=== PATIENT | male | born 1935 | race Two or more races ===

== ENCOUNTER 2020-07-01 09:15 | Emergency (ER) | payer MEDICARE, OTHER ==
[~2020-07-01] VITALS: Ht 177.8 cm; Wt 77.1 kg
[2020-07-01] MEDS ORDERED: CALCIUM CHLOR(10%) 100MG/ML 10ML SYRINGE IV ONE (09:16)
[2020-07-01] MEDS ORDERED: SODIUM BICARBONATE 8.4% INJ 50ML SYRINGE IV ONE (09:16)
[2020-07-01] MEDS ORDERED: EPINEPHrine HCL 1 MG/10 ML SYRG IV ONE (09:16)
[2020-07-01] MEDS ORDERED: methylPREDNISolone SOD SUCC 125 MG/2 ML VL ONE (09:26)
[2020-07-01 09:30] VITALS: BP 0/0
[2020-07-01] MEDS ORDERED: NOREPINEPHRINE 8 MG/250ML KIT 250 ML IV SCH (09:30)
[2020-07-01] MEDS ORDERED: MIDAZOLAM DRIP 50 mg/50mL 50 ML IV SCH (09:30)
[2020-07-01] MEDS ORDERED: SODIUM BICARBONATE 8.4% INJ 50ML SYRINGE ONE (09:40)
== END 2020-07-03 21:00 ==
LOC: ER 09:15 → EDBD 09:15 → ER 07-03 21:00
DX: I46.9 Cardiac arrest, cause unspecified (principal); J44.9 Chronic obstructive pulmonary disease, unspecified
CPT/HCPCS: 31500; 92950; 99285; J0171; J2930; 99291